=== PATIENT | female | born 1955 | race American Indian/Alaskan Native ===

== ENCOUNTER 2021-06-02 20:21 | Inpatient (IN) | payer OTHER, MEDICARE ==
[~2021-06-02] VITALS: Ht 154.9 cm; Wt 41.1 kg
[2021-06-02] MEDS ORDERED: Prinivil10 MG PO (21:32)
[2021-06-02] MEDS ORDERED: ATEN25 PO (21:33)
[2021-06-02] MEDS ORDERED: 1/2 NS 250ml250 ML (21:33)
[2021-06-02 22:25] LABS: BASOPHILS ABSOLUTE AUTO 0.05 K/mm3 (0.00-0.23); BASOPHILS PERCENT AUTO 1 % (0-2); EOSINOPHILS ABSOLUTE AUTO 0.04 K/mm3 (0.00-0.68); EOSINOPHILS PERCENT AUTO 0 % (0-6); Hematocrit 34.9 % (33.0-51.0); Hemoglobin 11.6 g/dL (11.5-16.0); IMMATURE GRAN ABSOLUTE AUTO 0.02 K/mm3 (0.00-0.10); IMMATURE GRAN PERCENT AUTO 0 % (0-1); LYMPHOCYTES ABSOLUTE AUTO 0.72 K/mm3 (0.84-5.20); LYMPHOCYTES PERCENT AUTO 8 % (21-46); MONOCYTES ABSOLUTE AUTO 0.57 K/mm3 (0.16-1.47); MONOCYTES PERCENT AUTO 6 % (4-13); Mean Corpuscular HGB 33.1 pg (26.0-34.0); Mean Corpuscular HGB Conc 33.2 g/dL (31.5-36.5); Mean Corpuscular Volume 100 fL (80-100); Mean Platelet Volume 8.8 fL (9.1-12.4); NEUTROPHILS ABSOLUTE AUTO 7.71 K/mm3 (1.96-9.15); NEUTROPHILS PERCENT AUTO 85 % (41-73); Platelet Count 291 K/mm3 (150-400); RDW Coefficient Variation 14.4 % (11.7-14.2); RDW Standard Deviation 52.8 fL (35.1-46.3); White Blood Cell Count 9.11 K/mm3 (4.00-11.30)
[2021-06-02 22:43] LABS: Alanine Aminotransfer (ALT/SGP 24 U/L (12-78); Albumin, Blood 3.2 g/dL (3.4-5.0); Albumin/Globulin Ratio 0.7 (0.8-1.8); Alk Phos 149 U/L (50-136); Anion Gap 7 mmol/L (6-16); Aspartate Aminotrans (AST/SGOT 28 U/L (12-37); Bilirubin, Total 0.6 mg/dL (0.1-1.0); Blood Urea Nitrogen 24 mg/dL (8-24); Bun/Creatinine Ratio 40.5 (12.0-20.0); CO2, Blood 23 mmol/L (21-32); Calcium, Blood 8.7 mg/dL (8.5-10.1); Chloride, Blood 110 mmol/L (98-108); Creatinine, Blood 0.59 mg/dL (0.40-1.00); Globulin, Blood 4.5 g/dL (2.2-4.0); Glomerular Filtration Rate >60 (60-); Glucose, Blood 94 mg/dL (70-99); Potassium, Blood 4.1 mmol/L (3.5-5.5); Sodium, Blood 140 mmol/L (136-145); Total Protein, Blood 7.7 g/dL (6.4-8.2)
[2021-06-02 23:27] LABS: Influenza A, PCR NEGATIVE (NEGATIVE); Influenza B, PCR NEGATIVE (NEGATIVE); Resp Syncytial Virus, PCR NEGATIVE (NEGATIVE); SARS-Cov-2 (COVID-19) PCR, MMC NEGATIVE (NEGATIVE)
--- NOTE | 2021-06-03 04:44 | NUR ---
BEVERAGE DISTILLER SUMMARY NEW ADMIT FROM THE ED TONIGHT WITH R HIP FX AFTER A GROUND LEVEL FALL AT HOME. BRUISING NOTED UNDER PT'S LOWER LIP, PT STATED SHE HIT A CHAIR EDGE WHEN SHE FELL. NO BRUISING NOTED TO R HIP AREA. PT AAOX4 AND PLEASANT. 1 ASSIST USING BEDPAN. MEDICATED X1 WITH IV FENTANYL 25 MCG THIS AM. ORTHO CONSULT CALLED TO DR KAT ANSWERING SERVICE. PT HAS BEEN ABLE TO GET SOME GOOD SLEEP TONIGHT. VSS, WILL CONTINUE TO MONITOR.
[2021-06-03 04:45] LABS: Hematocrit 33.7 % (33.0-51.0); Mean Corpuscular HGB 32.6 pg (26.0-34.0); Mean Corpuscular HGB Conc 32.6 g/dL (31.5-36.5); Mean Corpuscular Volume 100 fL (80-100); Mean Platelet Volume 9.1 fL (9.1-12.4); Platelet Count 277 K/mm3 (150-400); RDW Coefficient Variation 14.3 % (11.7-14.2); RDW Standard Deviation 52.7 fL (35.1-46.3); Red Blood Cell Count 3.37 M/mm3 (3.80-5.20); White Blood Cell Count 6.44 K/mm3 (4.00-11.30)
[2021-06-03 05:22] LABS: Anion Gap 7 mmol/L (6-16); Blood Urea Nitrogen 24 mg/dL (8-24); Bun/Creatinine Ratio 35.1 (12.0-20.0); CO2, Blood 23 mmol/L (21-32); Calcium, Blood 8.3 mg/dL (8.5-10.1); Chloride, Blood 110 mmol/L (98-108); Creatinine, Blood 0.68 mg/dL (0.40-1.00); Glomerular Filtration Rate >60 (60-); Glucose, Blood 100 mg/dL (70-99); Sodium, Blood 140 mmol/L (136-145)
[2021-06-03 09:19] LABS: Source, Urine Clean Catch
[2021-06-03 09:28] LABS: Bilirubin, Urine Neg (Neg); Blood, Urine 3+ (Neg); Glucose Qualitative, Urine Neg (Neg); Ketones, Urine Neg (Neg); Leukocyte Esterase, Urine Neg (Neg); Nitrite, Urine Neg (Neg); Protein, Urine Neg (Neg); Urobilinogen, Urine NORM (Normal)
[2021-06-03 09:33] LABS: Appearance, Urine Clear (Clear); Color, Urine Yellow (P-Yellow)
[2021-06-03 09:35] LABS: White Blood Cells, Urine 0-2 /hpf (0-5)
[2021-06-03 09:36] LABS: Squamous Epithelial Cells Few /hpf (Few)
[2021-06-03 09:37] LABS: Bacteria Few /hpf
--- NOTE | 2021-06-03 14:22 | NUR ---
PT TRANSFERED TO [facility] FROM FLOOR VIA BED. History, Chart, Medications and Allergies reviewed before start of procedure. Lungs clear T/O to Auscultation. Patient confirms NPO status and agrees with scheduled surgery. Pre-Op teaching done. Pt verbalizes understanding.
--- NOTE | 2021-06-03 17:00 | NUR ---
06/03/21 1700 Litzy Nguyen PATIENT ARRIVED TO OR WITH BRUSING ON HER RIGHT SIDE OF HER CHIN, PURPLISH/BLUE IN COLOR CONSIST WITH HER FALL AND HER FEMORAL NECK FRACTURE.
--- NOTE | 2021-06-03 18:45 | NUR ---
PATIENT JUST ARRIVED BACK TO THE FLOOR FROM PACU, PATIENT IS AWAKE AND ALERT. ABLE TO MAKE NEEDS AND WANTS KNOWN. NO COMPLAINTS OF PAIN AT THIS TIME.
[2021-06-04 04:39] LABS: BASOPHILS ABSOLUTE AUTO 0.02 K/mm3 (0.00-0.23); BASOPHILS PERCENT AUTO 0 % (0-2); EOSINOPHILS PERCENT AUTO 0 % (0-6); Hematocrit 29.2 % (33.0-51.0); Hemoglobin 9.4 g/dL (11.5-16.0); IMMATURE GRAN ABSOLUTE AUTO 0.04 K/mm3 (0.00-0.10); IMMATURE GRAN PERCENT AUTO 1 % (0-1); LYMPHOCYTES ABSOLUTE AUTO 0.75 K/mm3 (0.84-5.20); LYMPHOCYTES PERCENT AUTO 9 % (21-46); MONOCYTES ABSOLUTE AUTO 0.62 K/mm3 (0.16-1.47); MONOCYTES PERCENT AUTO 8 % (4-13); Mean Corpuscular HGB Conc 32.2 g/dL (31.5-36.5); Mean Corpuscular Volume 103 fL (80-100); Mean Platelet Volume 9.3 fL (9.1-12.4); NEUTROPHILS ABSOLUTE AUTO 6.61 K/mm3 (1.96-9.15); NEUTROPHILS PERCENT AUTO 82 % (41-73); Platelet Count 254 K/mm3 (150-400); RDW Coefficient Variation 14.4 % (11.7-14.2); RDW Standard Deviation 54.7 fL (35.1-46.3); Red Blood Cell Count 2.85 M/mm3 (3.80-5.20); White Blood Cell Count 8.04 K/mm3 (4.00-11.30)
[2021-06-04 05:06] LABS: Anion Gap 5 mmol/L (6-16); Blood Urea Nitrogen 23 mg/dL (8-24); Bun/Creatinine Ratio 28.4 (12.0-20.0); CO2, Blood 24 mmol/L (21-32); Calcium, Blood 7.9 mg/dL (8.5-10.1); Chloride, Blood 109 mmol/L (98-108); Creatinine, Blood 0.81 mg/dL (0.40-1.00); Glomerular Filtration Rate >60 (60-); Glucose, Blood 115 mg/dL (70-99); Potassium, Blood 4.2 mmol/L (3.5-5.5); Sodium, Blood 138 mmol/L (136-145)
--- NOTE | 2021-06-04 06:07 | NUR ---
SHIFT REPORT: DENIED PAIN THROUGH NIGHT. AMBULATED TO BATHROOM WITH WALKER AND GAIT BELT WITH 1 ASSIST. TOLERATED FOOD AND FLUIDS WELL. VOIDING WITHOUT DIFFICULTY. AQUACEL DRESSING CLEAN DRY AND INTACT. SAFETY MAINTAINED, CALL DOZIER IN REACH.
--- NOTE | 2021-06-04 17:11 | NUR ---
SHIFT SUMMARY: PATIENT UP TO CHAIR FOR ALL MEALS TODAY, TOLERATING WELL. AMBULATE IN [place] A LONG DISTANCE WITH PT TODAY, GAIT BELT, SBA AND FWW. TOLERATE WELL. DENIES PAIN AND APPETITE GOOD. [place]. ON R HIP C,D,&I. TELEMETRY DC'D TODAY PER DR. CARUSO.
[2021-06-05 05:15] LABS: BASOPHILS ABSOLUTE AUTO 0.03 K/mm3 (0.00-0.23); BASOPHILS PERCENT AUTO 1 % (0-2); EOSINOPHILS ABSOLUTE AUTO 0.12 K/mm3 (0.00-0.68); EOSINOPHILS PERCENT AUTO 2 % (0-6); Hematocrit 28.2 % (33.0-51.0); Hemoglobin 9.2 g/dL (11.5-16.0); IMMATURE GRAN ABSOLUTE AUTO 0.01 K/mm3 (0.00-0.10); IMMATURE GRAN PERCENT AUTO 0 % (0-1); LYMPHOCYTES ABSOLUTE AUTO 1.11 K/mm3 (0.84-5.20); LYMPHOCYTES PERCENT AUTO 18 % (21-46); MONOCYTES ABSOLUTE AUTO 0.52 K/mm3 (0.16-1.47); MONOCYTES PERCENT AUTO 8 % (4-13); Mean Corpuscular HGB 33.1 pg (26.0-34.0); Mean Corpuscular HGB Conc 32.6 g/dL (31.5-36.5); Mean Corpuscular Volume 101 fL (80-100); Mean Platelet Volume 9.2 fL (9.1-12.4); NEUTROPHILS ABSOLUTE AUTO 4.38 K/mm3 (1.96-9.15); NEUTROPHILS PERCENT AUTO 71 % (41-73); Platelet Count 250 K/mm3 (150-400); RDW Coefficient Variation 14.4 % (11.7-14.2); RDW Standard Deviation 53.8 fL (35.1-46.3); Red Blood Cell Count 2.78 M/mm3 (3.80-5.20); White Blood Cell Count 6.17 K/mm3 (4.00-11.30)
--- NOTE | 2021-06-05 05:20 | NUR ---
DENIES PAIN OR DISCOMFORT, ONLY WHEN AMBULATING WHICH DOES NOT REQUIRE PAIN MEDICATION PER PATIENT. RIGHT HIP APPEARS MORE SWOLLEN WITH INCREASED REDNESS THAN YESTERDAY, CRYOCUFF IN PLACE. AMBULATED IN [place] WITH GAIT BELT AND WALKER. CURRENTLY RESTING PEACEFULLY IN BED, SAFETY MAINTAINED.
[2021-06-05 05:40] LABS: Percent Saturation 4.6 % (15.0-50.0)
[2021-06-05] MEDS ORDERED: Lisinopril2.5 MG PO (13:27)
[2021-06-05] MEDS ORDERED: XARELTO20 MG PO (13:27)
[2021-06-05] MEDS ORDERED: FERROUS GLUCON324 M2 PO (13:28)
[2021-06-05] MEDS ORDERED: VITAMIN D5000 UNIT PO (13:28)
--- NOTE | 2021-06-05 14:30 | NUR ---
DISCHARGE SUMMARY PT A&OX4, VSS/RA, VOIDING WELL, [place] PO, AMB W/FWW & GB, DENIES NEED FOR PAIN MEDICATIONS. LEFT FLOOR VIA WC WITH RN, TO GO HOME WITH , WITH ALL PERSONAL POSSESSIONS INCLUDING DC PACKET, 2 AQUACEL DRESSINGS, POLAR RANDY. DC INSTRUCTIONS PROVIDED. PT REP UNDERSTANDING THOSE INSTRUCTIONS INCLUDING FU WITH PCP (JOELLE) IN 1 WK, DRESSING CHANGES WEEKLY X2, MEDICATION CHANGES, WEAR COMPRESSION STOCKINGS 1 MONTH, SHORT FREQUENT WALKS WITH FWW, ICE/ELEVATE AT REST. IV DC'D.
== END 2021-06-05 14:34 | disposition home or self-care (01) | DRG 522 ==
LOC: ER 20:21 → SURS 23:26
PROVIDERS: Internal Medicine; Orthopaedic Surgery; Physician Assistant; Student in an Organized Health Care Education/Training Program; ADMIT Internal Medicine
PROC: 0SR90JZ Replacement of Right Hip Joint with Synthetic Substitute, Open Approach (ICD-10-PCS; principal; 2021-06-03 14:30)
DX: S72.031A Displaced midcervical fracture of right femur, initial encounter for closed fracture (principal); Z20.822 Contact with and (suspected) exposure to COVID-19; D50.9 Iron deficiency anemia, unspecified; I10 Essential (primary) hypertension; M81.0 Age-related osteoporosis without current pathological fracture; F41.9 Anxiety disorder, unspecified; Z28.21 Immunization not carried out because of patient refusal; Z96.632 Presence of left artificial wrist joint; Z91.013 Allergy to seafood; Z88.8 Allergy status to other drugs, medicaments and biological substances; Z79.899 Other long term (current) drug therapy; W01.0XXA Fall on same level from slipping, tripping and stumbling without subsequent striking against object, initial encounter
CPT/HCPCS: 0241U; 36415; 72170; 73502; 80048; 80053; 81001; 82728; 83540; 83550; 83690; 85025; 85027; 87077; 87086; 87147; 87186; 93005; 93010; 93306; 94762; 96374; 96375; 96376; 97110; 97116; 97161; 97165; 97530; 97535; 99285-25; A9270; C1776; J0171; J0690; J0735; J1100; J1885; J2250; J2270; J2370; J2405; J2704; J2795; J3010; J7120